=== PATIENT | male | born 1955 | race Two or more races ===

== ENCOUNTER 2017-11-06 21:00 | Emergency (ER) | payer OTHER ==
[~2017-11-06] VITALS: Ht 175.3 cm; Wt 113.4 kg
[~2017-11-06 21:00] MED LIST: AMOX500C2; D-ME473S63; IBUP-784
[2017-11-06 21:35] VITALS: BP 178/77
[2017-11-06] MEDS ORDERED: LIDOCAINE HCL/PF 1% 30 ML VIAL TP ONE (23:00)
[2017-11-06] MEDS ORDERED: TDAP [DIPH/PERTUSSIS/TET] 0.5 ML VIAL IM ONE ×2 (23:00→23:06)
[2017-11-06] MEDS ORDERED: LIDOCAINE /MPF 1% VIAL 5 ML VIAL ONE (23:06)
== END 2017-11-07 00:20 | disposition home or self-care (01) ==
LOC: ER 21:03
DX: S61.011A Laceration without foreign body of right thumb without damage to nail, initial encounter (principal); I10 Essential (primary) hypertension; J45.909 Unspecified asthma, uncomplicated; W26.8XXA Contact with other sharp object(s), not elsewhere classified, initial encounter; Y93.89 Activity, other specified; Y92.89 Other specified places as the place of occurrence of the external cause; Y99.8 Other external cause status
CPT/HCPCS: 90471; 90715; 99283; A4606; A6403; J3490 ×2; Z7610

== ENCOUNTER 2024-08-25 19:22 | Inpatient (IN) | payer MEDICARE, MEDICAID ==
[~2024-08-25] VITALS: Ht 175.3 cm; Wt 121.1 kg
[2024-08-25] MEDS ORDERED: IV NS 0.9% 250 ML IV ONE (19:38)
[2024-08-25] MEDS ORDERED: IOHEXOL-350 100 ML VIAL IV ONE (19:38)
[2024-08-25 19:50] LABS: PLATELET COUNT (AUTO) 240 K/uL (150-450); RED BLOOD CELL COUNT(AUTO) 4.56 MIL/uL (4.5-6.0); RED CELL DISTRIBUTION WIDTH 13.9 % (11.5-15.0); WHITE BLOOD COUNT (AUTO) 8.4 K/uL (4.3-11.0)
[2024-08-25 20:02] LABS: CALCIUM, SERUM 8.8 mg/dL (8.5-10.1); CREATININE 1.0 mg/dL (0.6-1.3); SODIUM SERUM 137.0 mmol/L (136-145); UREA NITROGEN, BLOOD 15.0 mg/dL (7-18)
[2024-08-25 20:05] LABS: INR 1.13 (0.91-1.10)
[2024-08-25] MEDS ORDERED: ASPIRIN EC 81 MG TABLET.DR PO ONE (21:56)
[2024-08-25] MEDS: ASPIRIN 81 MG TAB.CHEW PO ONE (22:04)
[2024-08-25 22:26] LABS: APPEARANCE,URINE CLEAR (CLEAR); BLOOD, URINE NEGATIVE Ery/uL (NEGATIVE); LEUKOCYTE ESTERASE ,URINE NEGATIVE (NEGATIVE); NITRITE, URINE NEGATIVE (NEGATIVE); UGLUCOSE NEGATIVE (NEGATIVE)
[2024-08-26] VITALS (7 sets, daily range): BP systolic 116–147; BP diastolic 66–76; TEMP 97.5–98.7; O2SAT 96–100
[2024-08-26] MEDS: PANTOPRAZOLE 40 MG TABLET.DR PO SCH (07:30)
[2024-08-26 07:52] LABS: LDL 122.0 mg/dL (0-99)
[2024-08-26] MEDS: ASPIRIN 81 MG TAB.CHEW PO SCH (08:30)
[2024-08-26] MEDS: ENOXAPARIN SODIUM 40 MG/0.4 ML DISP.SYRIN SQ SCH (08:31)
[2024-08-26] MEDS ORDERED: CLOPIDOGREL BISULFATE 75 MG TABLET PO SCH (10:30)
[2024-08-26] MEDS ORDERED: LISI40TA13 PO (11:03)
[2024-08-26] MEDS ORDERED: HYDR25TA4 PO (11:03)
[2024-08-26] MEDS ORDERED: LEVO175T7 PO (11:03)
[2024-08-26] MEDS ORDERED: AMLO-212 PO (11:03)
[2024-08-26] MEDS: CLOPIDOGREL BISULFATE 75 MG TABLET PO SCH (11:31)
[2024-08-26] MEDS: ATORVASTATIN 40 MG TABLET PO SCH (21:43)
[2024-08-26] MEDS ORDERED: SIMVASTATIN 20 MG TABLET PO SCH (22:00)
[2024-08-27] VITALS: BP 119/71; TEMP 98.2; O2SAT 98
[2024-08-27 07:53] LABS: PLATELET COUNT (AUTO) 247 K/uL (150-450); RED BLOOD CELL COUNT(AUTO) 4.40 MIL/uL (4.5-6.0); RED CELL DISTRIBUTION WIDTH 13.4 % (11.5-15.0); WHITE BLOOD COUNT (AUTO) 5.6 K/uL (4.3-11.0)
[2024-08-27 08:00] VITALS: BP 128/78; TEMP 98.2; O2SAT 97
[2024-08-27 08:06] LABS: CALCIUM, SERUM 8.8 mg/dL (8.5-10.1); CREATININE 1.0 mg/dL (0.6-1.3); SODIUM SERUM 139.0 mmol/L (136-145); UREA NITROGEN, BLOOD 17.0 mg/dL (7-18)
[2024-08-27 08:20] LABS: LDL 101.0 mg/dL (0-99)
[2024-08-27] MEDS: POTASSIUM CHLORIDE 20 MEQ TAB.PRT.SR PO SCH (11:14)
[2024-08-27 16:00] VITALS: BP 133/77; TEMP 98.4; O2SAT 100
[2024-08-27 20:00] VITALS: BP 134/70; TEMP 98.6; O2SAT 100
[2024-08-28 07:33] LABS: CALCIUM, SERUM 8.5 mg/dL (8.5-10.1); CREATININE 0.8 mg/dL (0.6-1.3); PHOSPHORUS 3.4 mg/dL (2.5-4.9); SODIUM SERUM 142.0 mmol/L (136-145); UREA NITROGEN, BLOOD 12.0 mg/dL (7-18)
[2024-08-28 08:23] VITALS: BP 135/83; TEMP 97.9; O2SAT 100
[2024-08-28] MEDS ORDERED: CLOP75TA15 PO (08:52)
[2024-08-28] MEDS ORDERED: ASPI-1169 PO (08:52)
== END 2024-08-28 10:00 | disposition home or self-care (01) | DRG 68 ==
LOC: ER 19:23 → TELE 23:03 → MED 08-27 11:13
PROVIDERS: ADMIT Nurse Practitioner Acute Care; ATTEND Nurse Practitioner Acute Care
DX: I66.21 Occlusion and stenosis of right posterior cerebral artery (principal); E66.01 Morbid (severe) obesity due to excess calories; R29.700 NIHSS score 0; E03.9 Hypothyroidism, unspecified; E78.5 Hyperlipidemia, unspecified; Z87.891 Personal history of nicotine dependence; Z68.39 Body mass index [BMI] 39.0-39.9, adult; Z79.82 Long term (current) use of aspirin; R20.0 Anesthesia of skin; I73.9 Peripheral vascular disease, unspecified; J45.909 Unspecified asthma, uncomplicated; R73.03 Prediabetes; R29.810 Facial weakness; I50.9 Heart failure, unspecified; I11.0 Hypertensive heart disease with heart failure
CPT/HCPCS: 36415; 70450-TC; 70496-TC; 70498-TC; 70551-TC; 71045-TC; 80048-TC; 80061-TC; 82962-TC; 83735-TC; 84100-TC; 84443-TC; 85025-TC; 85730-TC; 92526; 92611-TC; 93307-TC; 97112-TC; 97116-TC; 97530-TC; G0378; J1650; J7050; Q9967